=== PATIENT | male | born 1965 | race Caucasian/White ===

== ENCOUNTER 2017-01-05 11:51 | Observation (INO) | payer OTHER ==
[~2017-01-05] VITALS: Ht 180.3 cm; Wt 80.0 kg
[2017-01-05] MEDS ORDERED: DULOXETINE HCL20 MG PO (12:13)
[2017-01-05 13:09] LABS: EOSINOPHIL (%) 1.6 % (0-5); EOSINOPHIL COUNT 0.1 K/uL (0-0.3); HEMATOCRIT 41.3 % (38.0-50.0); IMMATURE GRANULOCYTE (%) 0.4 % (0.0-0.7); INSTRUMENT ABS NEUTROPHIL CT 5.8 K/uL; LYMPHOCYTE COUNT 1.2 K/uL (1.0-2.8); MCHC 36.3 G/DL (30.0-36.0); MCV 90.8 FL (86-99); MEAN PLAT.VOLUME 10.1 uM^3 (9.0-12.4); MONOCYTE (%) 10.3 % (3-12); MONOCYTE COUNT 0.8 K/uL (0-0.8); NEUTROPHIL (%) 72.5 % (45-76); NEUTROPHIL COUNT 5.8 K/uL (1.8-6.4); PLATELET COUNT 212 K/uL (156-360); RBC DIS.WIDTH-CV 11.3 % (11.8-14.6); RBC DIS.WIDTH-SD 38.1 % (39-53); RED BLOOD COUNT 4.55 M/uL (4.00-5.50)
[2017-01-05 13:18] LABS: D-DIMER ELISA < 150.00 ng/mLDDU (<230)
[2017-01-05 13:20] LABS: CHLORIDE 103 mEq/L (99-109); SODIUM 137 mEq/L (136-147)
[2017-01-05 13:23] LABS: GLUCOSE 108 mg/dL (70-99)
[2017-01-05 13:24] LABS: ANION GAP 7 MEQ/L (2-14)
[2017-01-05 13:25] LABS: TOTAL BILIRUBIN 2.4 mg/dL (0.0-1.0)
[2017-01-05 13:26] LABS: ALKALINE PHOSPHATASE 50 IU/L (3-129); GFR ESTIMATE (CALCULATED) > 59 mL/min/
[2017-01-05 13:27] LABS: UREA NITROGEN (BUN) 16 mg/dL (9-23)
[2017-01-05 13:29] LABS: CREATINE KINASE 61 IU/L (1-294); TOTAL CK 61 IU/L (1-294); TROP-I INTERPRETATION NEGATIVE; TROPONIN-I < 0.01 ng/mL (0.0-0.30)
[2017-01-05 13:35] LABS: CK-MB 2.5 ng/mL (0.0-4.9)
[2017-01-05 16:12] VITALS: BP 127/85
== END 2017-01-05 16:05 | disposition left against medical advice (07) ==
LOC: EME 11:51 → EDOF 15:08 → ENRESERV 15:09 → EDOF 16:05 → CANRESERV 16:26 → ENRESERV 16:26
PROVIDERS: Emergency Medicine
DX: R56.9 Unspecified convulsions (principal); T43.215A Adverse effect of selective serotonin and norepinephrine reuptake inhibitors, initial encounter; G62.9 Polyneuropathy, unspecified; M79.606 Pain in leg, unspecified; M79.89 Other specified soft tissue disorders
CPT/HCPCS: 70450; 71020; 80053; 82550; 82553; 84484; 85025; 85379; 93005; 99281; 99284; G0378; J7030